=== PATIENT | male | born 1985 | race African-American/Black ===

== ENCOUNTER 2016-12-05 13:26 | Emergency (ER) | payer SELFPAY ==
[2016-12-05] MEDS ORDERED: LIDOCAINE 1% MDV 20 ML ONE (15:52)
[2016-12-05] MEDS ORDERED: CEFTRIAXONE 1 GM VIAL ONE (15:52)
== END 2016-12-05 16:24 | disposition home or self-care (01) ==
LOC: ER 13:26
DX: N45.1 Epididymitis (principal); N43.3 Hydrocele, unspecified; F17.210 Nicotine dependence, cigarettes, uncomplicated
CPT/HCPCS: 36415; 76870; 80053; 81001; 85025; 87088; 87491; 87591; 96372